=== PATIENT | female | born 1955 | race Caucasian/White ===

== ENCOUNTER 2016-08-25 05:41 | Day surgery (SDC) | END 2016-08-25 09:41 | disposition home or self-care (01) | DX: K44.9 Diaphragmatic hernia without obstruction or gangrene (principal); K21.0 Gastro-esophageal reflux disease with esophagitis; K29.60 Other gastritis without bleeding; E11.9 Type 2 diabetes mellitus without complications | CPT/HCPCS: 43239; 87081; J2250; J3010; Z7610 ==